=== PATIENT | female | born 1985 | race Caucasian/White ===

== ENCOUNTER 2019-02-24 17:24 | Inpatient (IN) | payer MEDICAID, OTHER ==
[~2019-02-24] VITALS: Ht 157.5 cm; Wt 66.0 kg
[2019-02-24] MEDS ORDERED: PREN-93 PO (17:42)
[2019-02-24 17:43] VITALS: BP 109/70; PULSE 80; RESP 18; Ht 157.5 cm; Wt 66.0 kg
--- NOTE | 2019-02-24 19:06 | TRIAGE ---
OB Triage Datetime Report Generated by CPN: 02/24/2019 19:06 Datetime: 02/24/2019 18:30 Stage of : OB Triage Maternal Assessment Level of Consciousness: Keenly Alert, Responsive Labor Evaluation Frequency: NONE Monitor Mode: External Resting Tone [place]: Relaxed Heart Rate FHR Baseline Rate: 135 Monitor Mode: External US Variability: Moderate 6-25 bpm Accelerations: 15X15 Decelerations: None Category: Category I Pain Assessment Pain Scale: 0 Pain Goal: 3 Vaginal Exam Membrane Status: Intact Vaginal Bleeding: None Datetime: 02/24/2019 17:41 Assessment Type: Triage Maternal Assessment Level of Consciousness: Keenly Alert, Responsive DTR's/Clonus: DTRs 2+; No Clonus Headache: Denies Blurred Vision: No Respiratory Effort: Unlabored; Regular Rhythm; Equal Expansion Breath Sounds, Left: Clear and Equal Breath Sounds, Right: Clear and Equal Nausea/Vomiting: Denies RUQ Epigastric Pain: Denies Lower Extremities Edema: None Degree: None Upper Extremities Edema: None Degree: None Facial Edema: None Fall Risk Assessment History of Falling: (0) No Secondary Diagnosis: (0) No Ambulatory Aid: (0) Bedrest/Nurse Assist IV Therapy: (0) No Gait: (0) Normal/Bedrest/Immobile Mental Status: (0) Oriented to Own Ability Fall Score: 0 Fall Risk Score Definition: No Risk: No action required Datetime: 02/24/2019 17:40 Time of Arrival: 02/24/2019 17:15 EGA: 34.5 Arrived By: Ambulatory Arrived From: Office Chief Complaint: PT. SENT FROM CLINIC FOR EVAL. OF HBP Movement: Present Contractions: Denies/Absent Rupture of Membranes: Denies Vaginal Bleeding: None Vaginal Discharge: Denies Recent Sexual Intercouse: Yes Abdominal Trauma: Not Applicable Patient Complaints: None Time Provider Notified: 02/24/2019 18:55 Provider Notified: ALICE Initial Plan: PIH/BPP/EFW Datetime: 02/24/2019 17:38 Monitor Mode: External Monitor Mode: External US
[2019-02-24] MEDS: LACTATED RINGER'S 1,000 ML IV SCH (20:40)
[2019-02-25] MEDS: AL HYDROX/MG HYDROX/SIMETH 30 ML CUP PO PRN ×2 (00:22→12:04)
[2019-02-25] MEDS: LACTATED RINGER'S 1,000 ML IV SCH ×3 (02:18→17:19)
[2019-02-25] MEDS: ACETAMINOPHEN 325 MG TAB PO PRN ×4 (04:23→21:09)
[2019-02-25] MEDS: PRENATAL VITAMIN PO SCH (09:03)
[2019-02-25] MEDS ORDERED: CEFTRIAXONE 1 GM INJ IM ONE (12:00)
[2019-02-25] MEDS ORDERED: CEFTRIAXONE 1 GM/50 ML (PMX) 50 ML IVPB ONE (14:00)
[2019-02-25] MEDS: AMOXICILLIN/CLAV 500 MG TAB PO SCH ×2 (14:14→21:02)
--- NOTE | 2019-02-25 16:23 | HP ---
Date/Time of Note Date/Time of Note DATE: 02/25/19 TIME: 16:18 OB - History Hx of Present Free Text/Dictation 33-year-old female 2 para 1 at 34+ weeks gestation admitted because of oligohydramnios Last Menstrual Period: Aug 23, 2018 Estimated Due Date: Apr 02, 2019 : 2 Para: 1 Care: Limited Care Ultrasounds: No ultrasounds Obstetrical Complications: Other (Size consistently less than dates, advanced maternal age) Medical Complications: None, Other (Left foot plantar fasciitis) Past Family/Social History * Past Medical, Surgical, Family and Obstetric Histories reviewed from chart. Blood Type: O+ Rubella: immune RPR/VDRL: Negative GBS Status: Unknown HBsAG: Negative OB Admission Exam Vital Signs Vital Signs Vital Signs Date Temp Pulse Resp B/P (MAP) Pulse Ox O2 O2 Flow FiO2 Time Delivery Rate 02/24/19 98.4 80 18 109/70 Room Air 17:43 (83) Physical Exam HEENT: WNL Heart: Rhythm Normal Lungs: Clear, Equal Abdomen: WNL Extremities: Normal Reflexes: Normal Cervical Dilatation: None Effacement: 0% Station: -3 Membranes: Intact Heart Rate: 140's Accelerations: Accelerations Present Decelerations: No Decelerations Varibility: Marked Contractions on Admission: None Last 72 hours Lab Results CBC & BMP 02/24/19 18:00 Liver Function Test 02/24/19 18:00 Alanine Aminotransferase (ALT/SGPT) 19 Albumin 3.0 L Alkaline Phosphatase 147 H Aspartate Amino Transf (AST/SGOT) 16 Direct Bilirubin 0.00 Total Protein 6.2 OB Assessment/Plan Other Assessment: 34+ weeks gestation by ultrasound Oligohydramnios Other plan: Patient was admitted for observation and IV hydration DOMINICK RODRÍGUEZ MD Feb 25, 2019 16:23
--- NOTE | 2019-02-25 17:40 | PN ---
Date/Time of Note Date/Time of Note DATE: 02/25/19 TIME: 17:38 OB Subjective Subjective Subjective Patient is no major complaints Feel the baby moves OB Objective Objective Objective General physical exam is unchanged vital signs are stable heart tones are reactive Decreased URBANO, now 1.4 cm. OB Assessment/Plan Other Assessment: Oligohydramnios at 34+ weeks Specific test for ruptured membrane is pending Other plan: Perinatologist was contacted Recommended delivery if ruptured membrane is confirmed In case URBANO remains low will continue hospitalization until 37 weeks Repeat URBANO following day Steroids will be provided for enhanced lung maturation DOMINICK RODRÍGUEZ MD Feb 25, 2019 17:40
[2019-02-25] MEDS ORDERED: BETAMET NA PHOS/AC(6 MG/ML) 2 ML INJ SYG IM ONE (18:00)
[2019-02-25] MEDS: BETAMET NA PHOS/AC(6 MG/ML) 2 ML INJ SYG IM SCH (18:47)
[2019-02-26] MEDS: LACTATED RINGER'S 1,000 ML IV SCH ×4 (00:48→21:00)
[2019-02-26] MEDS: AL HYDROX/MG HYDROX/SIMETH 30 ML CUP PO PRN ×2 (00:58→12:13)
[2019-02-26] MEDS: PRENATAL VITAMIN PO SCH (09:28)
[2019-02-26] MEDS: AMOXICILLIN/CLAV 500 MG TAB PO SCH ×3 (09:28→20:59)
--- NOTE | 2019-02-26 10:08 | PERINOTE ---
Date/Time of Note Date/Time of Note DATE: 02/26/19 TIME: 10:01 Assessment/Recommendations Other Assessments 33 yo with IUP at 35w0d admitted for oligohydramnios, rupture of membranes unlikely. Recommendations: 1. Continue betamethasone course 2. Continuous FHT monitoring. If patient has additional prolonged deceleration or prolonged periods of minimal/absent variability without accelerations, rec ommend proceeding with delivery. 3. NICU consultation 4. Daily URBANO and detailed ultrasound to evaluate kidneys 5. Obtain labs (T&S, etc) for preparation for emergency delivery should FHT de celeration occur 6. Plan will be for delivery at 36 0/7 -37 6/7 weeks per ACOG committee opinion [id number] on medically indicated late and early term deliveries. However, earlier delivery may be indicated by FHT OB Subjective Free Text/Dictaton 33 yo with IUP at 35w0d admitted for oligohydramnios. Patient presented for ultrasound and was found to have low URBANO. URBANO today is 1.4cm. Patient reports leakage of urine when she coughs but denies loss of amniotic fluid. Rupture of membranes has been ruled out with nitraz. Patient is unclear if kidneys have been assessed on previous ultrasounds. PMH: denies PSH: salivary gland removal Meds: PNV, zantac NKDA SH: denies T/A/D HD# 2 IUP @ 35w0d Complaints/Overnight events Review of FHT shows a prolonged FHT deceleration that has recovered and periods of minimal variability without accelerations. However, the FHT at this time is moderate variability with accelerations and without decelerations. Patient is receiving betamethasone course Current Medications Current Medications Lactated Ringer's 1,000 ml @ 150 mls/hr Q6H40M IV Last administered on 02/26/19at 08:11; Admin Dose 150 MLS/HR; Start 02/24/19 at 20:02 Prenat Multivit/ University Manager/Iron/Folic Ac () 1 tab DAILY PO Last administered on 02/26/19at 09:28; Admin Dose 1 TAB; Start 02/25/19 at 09:00 Al Hydrox/Mg Hydrox/Simethicone (Mag-Al Plus) 30 ml Q6H PRN PO GASTROINTESTINAL UPSET Last administered on 02/26/19at 00:58; Admin Dose 30 ML; Start 02/25/19 at 00:30 Acetaminophen (Tylenol Tab) 650 mg Q4H PRN PO MILD PAIN(1-3)OR ELEVATED TEMP Last administered on 02/25/19at 21:09; Admin Dose 650 MG; Start 02/25/19 at 04:30 Amoxicillin/ Clavulanate Potassium (Augmentin) 500 mg TID PO Last administered on 02/26/19at 09:28; Admin Dose 500 MG; Start 02/25/19 at 13:00 Betamethasone Acet/Betameth SodPhos (Celestone Soluspan) 12 mg Q24H IM Last administered on 02/25/19at 18:47; Admin Dose 12 MG; Start 02/25/19 at 17:00; Stop 02/26/19 at 17:01 OB Admission Exam Physical Exam Vitals: Vital Signs Date Temp Pulse Resp B/P (MAP) Pulse Ox O2 O2 Flow FiO2 Time Delivery Rate 02/24/19 98.4 80 18 109/70 Room Air 17:43 (83) Last 72 hours Lab Results CBC & BMP 02/24/19 18:00 Liver Function Test 02/24/19 18:00 Alanine Aminotransferase (ALT/SGPT) 19 Albumin 3.0 L Alkaline Phosphatase 147 H Aspartate Amino Transf (AST/SGOT) 16 Direct Bilirubin 0.00 Total Protein 6.2 Ultrasound Results URBANO 1.4cm GARY MCLEAN MD Feb 26, 2019 10:08
--- NOTE | 2019-02-26 16:37 | PN ---
Date/Time of Note Date/Time of Note DATE: 02/26/19 TIME: 16:35 OB Subjective Subjective Subjective Patient does not have major medical complaints OB Objective Objective Objective Vital signs are stable in general physical exam is unchanged Currently has a reactive tracing with very mild variable deceleration of heart tones URBANO 2 days 0.8 cm Amniotic fluid index considerably is being decreased on a daily basis Perinatology notes appreciated We will try to evaluate kidney function of the baby via ultrasound per perinatologist recommendation Patient is going to receive the second dose of the steroid today If stays stable will deliver at 36 weeks and 1day to 37 weeks and 6 days OB Assessment/Plan Other Assessment: Oligohydramnios at 34+ weeks Other plan: Continue to observe patient DOMINICK RODRÍGUEZ MD Feb 26, 2019 16:37
[2019-02-26] MEDS ORDERED: BETAMET NA PHOS/AC(6 MG/ML) 2 ML INJ SYG IM ONE (18:00)
[2019-02-26] MEDS: BETAMET NA PHOS/AC(6 MG/ML) 2 ML INJ SYG IM SCH (18:43)
[2019-02-26] MEDS: ACETAMINOPHEN 325 MG TAB PO PRN (18:54)
[2019-02-26] MEDS ORDERED: ZOLPIDEM 5 MG TAB PO PRN (20:00)
[2019-02-26] MEDS: RANITIDINE 150 MG TAB PO SCH (20:59)
[2019-02-27] MEDS: LACTATED RINGER'S 1,000 ML IV SCH ×4 (04:34→21:22)
--- NOTE | 2019-02-27 08:57 | PN ---
Date/Time of Note Date/Time of Note DATE: 02/27/19 TIME: 08:55 OB Subjective Subjective Subjective Has no major complaints OB Objective Objective Objective Vital signs are stable as well as general physical exam Ultrasound for URBANO and kidney evaluation was performed results are pending OB Assessment/Plan Other Assessment: 35 weeks gestation with oligohydramnios Other plan: Will continue with continuous monitoring Obtain ultrasound results We will discuss ultrasound results with the patient DOMINICK RODRÍGUEZ MD Feb 27, 2019 08:57
[2019-02-27] MEDS: PRENATAL VITAMIN PO SCH (09:07)
[2019-02-27] MEDS: AMOXICILLIN/CLAV 500 MG TAB PO SCH ×3 (10:03→22:34)
[2019-02-27] MEDS: AL HYDROX/MG HYDROX/SIMETH 30 ML CUP PO PRN ×2 (10:32→20:08)
[2019-02-27] MEDS: ACETAMINOPHEN 325 MG TAB PO PRN (18:13)
[2019-02-27] MEDS: RANITIDINE 150 MG TAB PO SCH (21:51)
[2019-02-28] MEDS: LACTATED RINGER'S 1,000 ML IV SCH ×2 (01:31→09:51)
[2019-02-28] MEDS: AMOXICILLIN/CLAV 500 MG TAB PO SCH ×3 (09:52→21:17)
[2019-02-28] MEDS: PRENATAL VITAMIN PO SCH (09:52)
--- NOTE | 2019-02-28 17:01 | PN ---
Date/Time of Note Date/Time of Note DATE: 02/28/19 TIME: 17:00 OB Subjective Subjective Subjective Patient does not have major complaints OB Objective Objective Objective Vital signs stable and heart tones are also stable General physical exam is unchanged OB Assessment/Plan Other Assessment: 35 weeks gestation with oligohydramnios Ruptured membranes are ruled out Other plan: Continue to observe We will send patient to perinatology clinic following day for detailed ultrasound by perinatologist DOIMNICK RODRÍGUEZ MD Feb 28, 2019 17:01
[2019-02-28] MEDS: RANITIDINE 150 MG TAB PO SCH (17:57)
[2019-02-28] MEDS: ACETAMINOPHEN 325 MG TAB PO PRN (17:57)
[2019-03-01] MEDS: LACTATED RINGER'S 1,000 ML IV SCH ×5 (00:02→21:57)
[2019-03-01] MEDS: AMOXICILLIN/CLAV 500 MG TAB PO SCH ×3 (09:07→21:09)
[2019-03-01] MEDS: PRENATAL VITAMIN PO SCH (09:07)
[2019-03-01] MEDS: RANITIDINE 150 MG TAB PO SCH ×2 (16:16→21:09)
--- NOTE | 2019-03-01 17:07 | PN ---
Date/Time of Note Date/Time of Note DATE: 03/01/19 TIME: 17:03 OB Subjective Subjective Subjective Patient does not have major complaints claims the baby is moving OB Objective Objective Objective Vital signs are stable as well as general physical exam heart tones remained reactive Patient with low amniotic fluid Ultrasound for kidney evaluation could not be performed by perinatologist because of the distance and inability of this service to discharge patient home Perinatologist was contacted by this service and at this point it was felt that performing a detailed ultrasound does not change the management ST ratio on umbilical cord was ordered OB Assessment/Plan Other Assessment: Oligohydramnios at 35+ weeks Other plan: Continue to hospitalize and monitor baby [id number] Per perinatology recommendations will delivered the baby at 36+ weeks Consider another dose of steroids prior to delivery section was recommended as more of a delivery to the patient because of existence of oligohydramnios and occasional variable deceleration of heart tones We will reconsult patient in regards to more of a delivery again DOMINICK RODRÍGUEZ MD Mar 01, 2019 17:07
[2019-03-01] MEDS: ACETAMINOPHEN 325 MG TAB PO PRN (21:10)
[2019-03-02] MEDS: LACTATED RINGER'S 1,000 ML IV SCH ×3 (02:42→18:57)
[2019-03-02] MEDS: PRENATAL VITAMIN PO SCH (09:39)
[2019-03-02] MEDS: AMOXICILLIN/CLAV 500 MG TAB PO SCH ×3 (09:39→21:32)
--- NOTE | 2019-03-02 18:41 | PN ---
Date/Time of Note Date/Time of Note DATE: 03/02/19 TIME: 18:40 OB Subjective Subjective Subjective Patient does not have major complaint Claims to be baby is moving okay OB Objective Objective Objective Vital signs in general physical exam are stable heart tones are reactive ST ratio apparently is normal OB Assessment/Plan Other Assessment: Oligohydramnios at 35+ weeks by late confirmation of gestational age Other plan: Perinatologist is visited patient today and agrees with the management Will try to deliver at 36+ weeks DOMINICK RODRÍGUEZ MD Mar 02, 2019 18:41
[2019-03-02] MEDS: RANITIDINE 150 MG TAB PO SCH (21:32)
--- NOTE | 2019-03-03 00:30 | CONS ---
DATE OF ADMISSION: 02/24/2019 DATE OF CONSULTATION: 03/02/2019 HISTORY OF PRESENT ILLNESS: The patient had been admitted the prior week secondary to elevated blood pressure. After admission, she had some blood pressure issues but in the moderate range. The reaso n I am writing this note is that her URBANO has been low since admission. Initially, it was 3 lower to 1 and then increased to 2 cm. On the ultrasound today, 2 kidneys are seen, bladder is full and there is evidence of stomach. Baby has IUGR with good umbilical artery Doppler and URBANO is about 2 cm. heart is difficult to see obviously secondary to low fluid, but there is evidence of myocardial hypertrophy. This patient has had no care prior to the, essentially, admission, only 1 ult rasound at [facility] in December, which she reports there were no abnormalities seen. Today, she is 35 w eeks and 4 days. RECOMMENDATIONS: Monitor heart spontaneously. Continue with the IV hydration. I did review t he glucose test and it has not been done. I do recommend for this to be done. Delivery at 37 weeks unless there is evidence of nonreassuring heart tones or chorioamnionitis. ROM Plus has been n egative so has been the speculum exam. So, my belief is that the low fluid could be secondary to chr onic hypertension; however, given the late gestational age of diagnosis and low amniotic fluid which limits the complete evaluation of the anatomy, it is difficult to assess completely what would be the reason. I spoke to the patient and her and umbilical artery Doppler needs to be done weekly until delivery and continuous heart tone monitoring. Dictated By: ALEXANDRA HERNANDES MD ST/DANIELLA Conf#: [id number] DID#: [id number] CC: DOMINICK RODRÍGUEZ MD;*EndCC*
[2019-03-03] MEDS: LACTATED RINGER'S 1,000 ML IV SCH ×4 (02:02→21:40)
[2019-03-03] MEDS: AMOXICILLIN/CLAV 500 MG TAB PO SCH ×2 (09:15→13:15)
[2019-03-03] MEDS: PRENATAL VITAMIN PO SCH (09:15)
--- NOTE | 2019-03-03 11:51 | PN ---
Date/Time of Note Date/Time of Note DATE: 03/03/19 TIME: 11:49 OB Subjective Subjective Subjective Currently does not have major medical complaints Claims baby's movements are normal OB Objective Objective Objective Vital signs are stable in general physical exam is unchanged heart tones are reactive Perinatology consultation Dr. Puentes he was appreciated Recommendations were made to deliver at 37 weeks with continuous monitoring Because of decreased amniotic fluid it was mentioned it would be difficult to assess the anatomy completely OB Assessment/Plan Other Assessment: Oligohydramnios at 35+ weeks Other plan: Will follow perinatologist recommendation possibly delivery at 37 weeks or earli er should patient show signs of compromise ODMINICK RODRÍGUEZ MD Mar 03, 2019 11:51
[2019-03-03] MEDS: CLOTRIMAZOLE 1% 30 GM CR TOP SCH (19:30)
[2019-03-03] MEDS: AL HYDROX/MG HYDROX/SIMETH 30 ML CUP PO PRN (20:04)
[2019-03-03] MEDS ORDERED: CLOTRIMAZOLE 1% 30 GM CR TOP SCH (21:00)
[2019-03-03] MEDS: RANITIDINE 150 MG TAB PO SCH (22:12)
[2019-03-04] MEDS: LACTATED RINGER'S 1,000 ML IV SCH ×2 (03:15→11:00)
[2019-03-04] MEDS: CLOTRIMAZOLE 1% 30 GM CR TOP SCH (06:33)
[2019-03-04] MEDS: PRENATAL VITAMIN PO SCH (09:00)
[2019-03-04] MEDS ORDERED: LACTATED RINGER'S 1,000 ML IV SCH ×2 (09:32→19:00)
[2019-03-04] MEDS ORDERED: CARBOPROST 250 MCG INJ IM PRN ×2 (10:00→19:00)
[2019-03-04] MEDS ORDERED: OXYTOCIN 30 UNITS/LR 500 ML IV PRN ×2 (10:00→19:00)
[2019-03-04] MEDS ORDERED: MISOPROSTOL 200 MCG TAB PR PRN ×2 (10:00→19:00)
[2019-03-04] MEDS ORDERED: METHYLERGONOVINE 0.2 MG INJ IM PRN ×2 (10:00→19:00)
[2019-03-04] MEDS ORDERED: CEFAZOLIN 2 GM/50 ML (PMX) 50 ML IVPB SCH (10:00)
--- NOTE | 2019-03-04 13:38 | PREAC ---
Date/Time of Note Date/Time of Note DATE: 03/04/19 TIME: 13:36 Anesthesia Eval and Record Evaluation Time Pre-Procedure Interview DATE: 03/04/19 TIME: 13:36 Age 33 Sex female NPO: 8 hrs Preoperative diagnosis IUGR, low URBANO Planned procedure C/S Past Medical History Past Medical History: None Surgery & Anesthesia Issues No known issue Meds Anticoagulation: No Beta Gabi within 24 hr: No Reason Beta Gabi not given: Pt. not on B-Gabi Reported Medications Vit No.124/Iron/FA ( Vitamin Tablet) 1 Each Tablet, 1 EACH PO DAILY, TAB 02/24/19 Current Medications Prenat Multivit/ Sled Maker/Iron/Folic Ac () 1 tab DAILY PO Last administered on 03/03/19 09:15; Admin Dose 1 TAB; Start 02/25/19 at 09:00 Al Hydrox/Mg Hydrox/Simethicone (Mag-Al Plus) 30 ml Q6H PRN PO GASTROINTESTINAL UPSET Last administered on 03/03/19at 20:04; Admin Dose 30 ML; Start 02/25/19 at 00:30 Acetaminophen (Tylenol Tab) 650 mg Q4H PRN PO MILD PAIN(1-3)OR ELEVATED TEMP Last administered on 03/01/19 21:10; Admin Dose 650 MG; Start 02/25/19 at 04:30 Ranitidine HCl (Zantac) 150 mg HS PO Last administered on 03/03/19at 22:12; Admin Dose 150 MG; Start 02/26/19 at 21:00 Zolpidem Tartrate (Ambien) 5 mg HS PRN PO INSOMNIA Last administered on 02/26/19 22:28; Admin Dose 5 MG; Start 02/26/19 at 20:00 Lactated Ringer's 1,000 ml @ 150 mls/hr Q6H40M IV Last administered on 03/04/19 03:15; Admin Dose 150 MLS/HR; Start 03/02/19 at 19:00 Clotrimazole (Lotrimin Cr) 1 applic Q12H TOP Last administered on 03/04/19 06:33; Admin Dose 1 APPLIC; Start 03/03/19 at 18:30 Lactated Ringer's 1,000 ml @ 125 mls/hr Q8H IV ; Start 03/04/19 at 09:32 Cefazolin Sodium/ Dextrose 50 ml @ 100 mls/hr ONCE IVPB ; Start 03/04/19 at 10:00 Oxytocin/Lactated Ringer's 500 ml @ 0 mls/hr ONCE PRN IV .VAGINAL BLEEDING; Start 03/04/19 at 10:00 Methylergonovine Maleate (Methergine) 0.2 mg ONCE PRN IM .VAGINAL BLEEDING; Start 03/04/19 at 10:00 Carboprost Tromethamine (Hemabate) 250 mcg ONCE PRN IM .VAGINAL BLEEDING; Start 03/04/19 at 10:00 Misoprostol (Cytotec) 1,000 mcg ONCE PRN [place] .VAGINAL BLEEDING; Start 03/04/19 at 10:00 Meds reviewed: Yes Allergies Coded Allergies: No Known Allergy (Unverified , 02/24/19) Allergies Reviewed: Yes Labs/Studies Labs Reviewed: Reviewed by anesthesiologist Result Diagram: 03/04/19 0950 03/04/19 0950 Laboratory Tests 03/04/19 09:50 Blood Bank Test 03/04/19 09:50 Antibody Screen NEGATIVE Blood Type O POSITIVE test: Positive Pre-procedure Exam Airway: Adequate mouth opening Mallampati: Mallampati II Teeth: Normal Lung: Normal Heart: Normal ASA Physical Status ASA physical status: 2 Emergency: None Planned Anesthetic Neuraxial: Spinal Planned Pain Management Sub-arachniod narcotics Pre-operative Attestations Prior to commencing anesthesia and surgery, the patient was re-evaluated, there was verification of: *The patient's identity *The results of appropriate recent lab work and preoperative vital signs *The above evaluation not changing prior to induction *Anesthetic plan, risk benefits, alternative and complications discussed with patient/family; questions answered; patient/family understands, accepts and wishes to proceed. ELISA LOWE MD Mar 04, 2019 13:38
[2019-03-04] MEDS ORDERED: OXYTOCIN 30 UNITS/LR 500 ML IV ONE (13:50)
[2019-03-04] MEDS ORDERED: ONDANSETRON 4 MG INJ ONE (13:50)
[2019-03-04] MEDS ORDERED: morphine SULFATE/PF (10 MG/10 ML) INJ ONE (13:50)
[2019-03-04] MEDS ORDERED: OXYTOCIN 10 UNIT INJ ONE ×3 (13:51→14:38)
[2019-03-04] MEDS ORDERED: METOCLOPRAMIDE 10 MG INJ ONE (13:51)
[2019-03-04] MEDS ORDERED: EPHEDrine 25 MG/5 ML SYG ONE (14:38)
[2019-03-04] MEDS ORDERED: MIDAZOLAM 1 MG/ML 2 ML INJ ONE (14:50)
[2019-03-04] MEDS ORDERED: EPHEDrine 25 MG/5 ML SYG IV PRN (15:30)
[2019-03-04] MEDS ORDERED: ONDANSETRON 4 MG INJ IV PRN ×2 (15:30→19:00)
[2019-03-04] MEDS ORDERED: morphine 2 MG INJ IV PRN (15:30)
[2019-03-04] MEDS ORDERED: NALOXONE (0.4 MG/ML) INJ IV PRN (15:30)
[2019-03-04] MEDS ORDERED: DIPHENHYDRAMINE 50 MG INJ IV PRN ×2 (15:30→19:00)
[2019-03-04] MEDS ORDERED: morphine SULFATE/PF (10 MG/10 ML) INJ SPINAL ONE (15:30)
[2019-03-04] MEDS: KETOROLAC 30 MG INJ IV PRN (17:26)
[2019-03-04 18:10] VITALS: BP 114/70; PULSE 60; RESP 18
--- NOTE | 2019-03-04 18:38 | OPPN ---
Date/Time of Note Date/Time of Note DATE: 03/04/19 TIME: 18:31 Operative Report Planned Procedure Procedure date Mar 04, 2019 Procedure(s) primary LTCS Performed by see signature line Full Roll Inspector: PREM ROQUE MD 2nd Full Roll Inspector none Anesthesiologist: ELISA LOWE MD Pre-procedure diagnosis IUP 35w4d severe oligohydramnios CAT II [id number] Anesthesia Type: [id number] spinal Post-Procedure Post-procedure diagnosis delivered normal male Findings Live Baby [f], Apgars [8] and [9], weight [], position [rot], [vx] presentation [no]cord. Estimated Blood Loss: 400 - 500 mls Specimen(s) placenta Grafts/Implant(s) none Complication(s) none CARMELINA CHAMBERLAIN MD Mar 04, 2019 18:38
[2019-03-04] MEDS ORDERED: OXYCODONE/ACETAMINOPHEN (5/325) TAB PO PRN (19:00)
[2019-03-04] MEDS ORDERED: ZOLPIDEM 5 MG TAB PO PRN (19:00)
[2019-03-04 19:45] VITALS: BP 136/72; PULSE 62; RESP 18
[2019-03-04] MEDS: SENNA/DOCUSATE NA (8.6MG/50MG) TAB PO SCH (21:00)
[2019-03-04] MEDS: morphine 2 MG INJ IV PRN (21:54)
--- NOTE | 2019-03-04 23:03 | PAC ---
Date/Time of Note Date/Time of Note DATE: 03/04/19 TIME: 23:03 Post-Anesthesia Notes Post-Anesthesia Note Last documented vital signs Vital Signs Date Temp Pulse Resp B/P (MAP) Pulse Ox O2 O2 Flow FiO2 Time Delivery Rate 03/04/19 98.1 62 18 136/72 95 Room Air 19:45 (93) Activity: WNL Respiratory function: WNL Cardiovascular function: WNL Mental status: Baseline Pain reasonably controlled: Yes Hydration appropriate: Yes Nausea/Vomiting absent: Yes ELISA LOWE MD Mar 04, 2019 23:03
[2019-03-05] MEDS: KETOROLAC 30 MG INJ IV PRN ×2 (03:20→09:54)
[2019-03-05 03:50] VITALS: BP 127/76; PULSE 84; RESP 18
[2019-03-05] MEDS: LACTATED RINGER'S 1,000 ML IV SCH ×2 (05:07→13:00)
[2019-03-05 08:30] VITALS: BP 118/77; PULSE 86; RESP 18
[2019-03-05] MEDS: morphine 2 MG INJ IV PRN (08:34)
[2019-03-05] MEDS: SENNA/DOCUSATE NA (8.6MG/50MG) TAB PO SCH ×2 (08:34→21:37)
[2019-03-05] MEDS: CLOTRIMAZOLE 1% 30 GM CR TOP SCH ×2 (11:12→21:36)
--- NOTE | 2019-03-05 11:26 | OPPN ---
Date/Time of Note Date/Time of Note DATE: 03/05/19 TIME: 11:25 Anesthesia Follow up Anesthesia Follow up Last documented vital signs Vital Signs Date Temp Pulse Resp B/P (MAP) Pulse Ox O2 O2 Flow FiO2 Time Delivery Rate 03/05/19 98.0 86 18 118/77 97 Room Air 08:30 (91) Respiratory function: WNL Cardiovascular function: WNL Comments Postoperative pain in good control with spinal duramorph. Vital signs stable. No other specific complaints. ELISA LOWE MD Mar 05, 2019 11:26
--- NOTE | 2019-03-05 13:15 | QN ---
Documentation Comment late entry for service rendered on 03/04/19 preoperative note: 33y.o at 35w4d has been hospitalized for one week due to severe oligohydramnios which started 3cm than1.2 ,2 earlier 03/04/19 called for profound variable down to 60's for 4min discussed with MFM( Dr Ramos ) suggested to deliver,mode /c/s because of situation of oligohydramnios and poss IUGR and possible undetected anomalies informed patient ,agree to undergo primary c/s CARMELINA CHAMBERLAIN MD Mar 05, 2019 13:15
--- NOTE | 2019-03-05 13:20 | PN ---
Date/Time of Note Date/Time of Note DATE: 03/05/19 TIME: 13:16 OB Subjective Subjective Subjective no passing flatus yet tolerating liquid well OB Objective Objective Objective VSS afebrile still have bloom in ,draining well abdomen soft wound dry lochia min calf neg for tenderness OB Assessment/Plan Other Assessment: A S/P primary C/S #1 stable Other plan: advance diet ambulate CARMELINA CHAMBERLAIN MD Mar 05, 2019 13:20
[2019-03-05 16:37] VITALS: BP 140/91; PULSE 105; RESP 18
[2019-03-05] MEDS: OXYCODONE/ACETAMINOPHEN (5/325) TAB PO PRN (17:38)
[2019-03-05] MEDS: IBUPROFEN 600 MG TAB PO SCH (18:21)
[2019-03-05 20:10] VITALS: BP 124/77; PULSE 97; RESP 18
[2019-03-06] MEDS: IBUPROFEN 600 MG TAB PO SCH ×5 (00:11→23:36)
[2019-03-06] MEDS: OXYCODONE/ACETAMINOPHEN (5/325) TAB PO PRN ×5 (00:57→18:50)
[2019-03-06 04:03] VITALS: BP 126/53; PULSE 80; RESP 17
[2019-03-06] MEDS: LANOLIN HPA 1 PKT TOP PRN (05:09)
[2019-03-06 08:00] VITALS: BP 117/83; PULSE 70; RESP 16
[2019-03-06] MEDS: SENNA/DOCUSATE NA (8.6MG/50MG) TAB PO SCH ×2 (09:05→21:22)
[2019-03-06] MEDS: CLOTRIMAZOLE 1% 30 GM CR TOP SCH ×2 (10:18→21:22)
[2019-03-06 15:50] VITALS: BP 123/83; PULSE 94; RESP 18
--- NOTE | 2019-03-06 18:17 | PN ---
Date/Time of Note Date/Time of Note DATE: 03/06/19 TIME: 18:13 OB Subjective Subjective Subjective no b.m yet tolerating diet well no c/o except incisional pain OB Objective Objective Objective vss afebrile abdomen soft wound dry calf neg for tenderness lochia min postop CBC 10.5/9.5,29/322 OB Assessment/Plan Other Assessment: stable post primary c/s#2 Plan: Expectant Management CARMELINA CHAMBERLAIN MD Mar 06, 2019 18:17
--- NOTE | 2019-03-06 18:42 | OPR ---
DATE OF OPERATION: PREOPERATIVE DIAGNOSES: 1. 35 weeks 4 days. 2. Severe oligohydramnios. 3. Category 2 tracing. PROCEDURE: Primary low transverse section. ANESTHESIA: Spinal. ANESTHESIOLOGIST: Dr. Ty Yang SURGEON: Nicole Hobbs GM/SVP [employer] BUSINESS: ____ ESTIMATED BLOOD LOSS: Approximately 500 mL. POSTOPERATIVE DIAGNOSIS: Delivered normal male infant. Baby weighed 4 pounds 8 ounces, Apga r 8 and 9. PROCEDURE: Under proper induction of spinal anesthesia, the patient was placed in frog position. Fo earl catheter was introduced into the bladder under sterile condition, repositioned to supine. Abdomi nal wall was prepped and draped in usual aseptic manner. A Pfannenstiel incision was made. Incision was carried down through the subcutaneous tissue to the anterior recti fascia which was incised cunningham sversely, length of the incision. Fascial flap was created by blunt and sharp dissection of tendinou s attachment upward, and 2 rectus muscles split in the midline, and peritoneal cavity was entered. L ow portion of the uterus was exposed. A transverse incision was made above the uterovesical reflecti on. Incision was layer by layer, reached the amniotic fluid. There was no significant amount of flu id noted. The normal male was born from right occiput transverse position. Baby weig hed 4 pounds 8 ounces, with 8 and 9. Delayed clamp done and cut and handed to the respiratory care personnel for further care. Cord blood was obtained. A section of cord was obtained, but was d iscarded because of the was good. Placenta was sent for evaluation for severe oligohydramnios with possible IUGR. Uterus was exteriorized. Cavity was completely explored. Uterine incision was closed using #1 chromic catgut in continuous interlocking manner on the first layer and second layer using 0 chromic catgut including serosa. No bleeding was noted. Uterus was relocated in abdominal c avity after all the blood irrigated in the abdominal cavity, and sponge count correct. Then, the inc isional site rechecked, which was intact. Parietal peritoneum was closed using 0 chromic catgut in c ontinuous manner, muscle closed with 0 chromic catgut in continuous manner. The fascia closed with a #1 Vicryl in 2 segments. The subcutaneous tissue irrigated with water. This layer was approximated with 2-0 plain gut after adequate hemostasis secured. Skin closed with 3-0 Monocryl in subcuticular manner. Steri-Strip applied. Pressure dressing applied. Estimated blood loss approximately 500 mL . The patient sent to the recovery room in stable condition. Urine output approximately 200 mL, whi ch was clear. Dictated By: DOV JUAREZ/DANIELLA Conf#: [id number] DID#: [id number]
[2019-03-06 19:30] VITALS: BP 128/80; PULSE 90; RESP 19
[2019-03-06] MEDS ORDERED: BISACODYL 10 MG SUPP PR ONE (21:30)
[2019-03-06] MEDS: RANITIDINE 150 MG TAB PO SCH (22:27)
[2019-03-07] MEDS: OXYCODONE/ACETAMINOPHEN (5/325) TAB PO PRN ×5 (00:45→23:17)
[2019-03-07 03:40] VITALS: BP 124/73; PULSE 71; RESP 18
[2019-03-07] MEDS: IBUPROFEN 600 MG TAB PO SCH ×3 (05:41→18:00)
[2019-03-07 08:20] VITALS: BP 114/72; PULSE 85; RESP 16
[2019-03-07] MEDS ORDERED: DIPHTH/TET/ACEL PERTUSS (ADULT) 0.5 ML VIAL IM* ONE (09:00)
[2019-03-07] MEDS: SENNA/DOCUSATE NA (8.6MG/50MG) TAB PO SCH ×2 (09:12→21:59)
[2019-03-07] MEDS: CLOTRIMAZOLE 1% 30 GM CR TOP SCH ×2 (09:13→21:59)
--- NOTE | 2019-03-07 15:20 | DS ---
Date/Time of Note Date/Time of Note DATE: 03/07/19 TIME: 15:19 Obstetrical Discharge Record Final Diagnosis Final Diagnosis: delivered Other Final Diagnosis Status post section at 35 weeks and 6 days Section Section: Primary Primary Indication Prolonged bradycardic episodes Complications Other (Oligohydramnios) Augmentation: No Induction: No Condition on Discharge Physical Assessment Last Vitals: See nurse's notes Voiding: Yes Bowel Movement: Yes Breast: Soft, non-tender, Filling Fundus: Firm Abdomen and Incision: Abdomen is soft with firm fundus His incision is healing well without induration and or erythema Calf Tenderness: No Patient Condition: Good DOMINICK RODRÍGUEZ MD Mar 07, 2019 15:20
--- NOTE | 2019-03-07 15:23 | DS ---
Date/Time of Note Date/Time of Note DATE: 03/07/19 TIME: 15:21 Discharge Summary Admission/Discharge Info Admit Date/Time Feb 24, 2019 at 18:50 Discharge Date/Time March 07, 2019 Discharge Diagnosis Status post delivery Patient Condition: Good Consults Perinatologist Procedures Primary section Hx of Present Illness 33-year-old female admitted with oligohydramnios at 34+ weeks After period of observation oligohydramnios became more pronounced and baby started having prolonged heart decelerations Finally she underwent primary section by on-call physician Hospital Course Patient had uncomplicated hospitalization course Home Meds Reported Medications Vit No.124/Iron/FA ( Vitamin Tablet) 1 Each Tablet, 1 EACH PO DAILY, TAB 02/24/19 Follow-up Plan To 3 days in clinic for staple removal Primary Care Provider Dominick Abernathy MD Time spent on discharge: > 30 minutes DOMINICK ABERNATHY MD Mar 07, 2019 15:23
[2019-03-07] MEDS ORDERED: IBUP-1542 PO (15:27)
[2019-03-07] MEDS ORDERED: ACET325T33 PO (15:28)
[2019-03-07] MEDS ORDERED: ACETAMINOPHEN 325 MG TAB PO PRN (15:30)
[2019-03-07 16:00] VITALS: BP 135/89; PULSE 76; RESP 18
--- NOTE | 2019-03-07 16:08 | PD.PPDC ---
SCHOOL BUS DRIVER/CUSTODIAN Discharge Instruction Provider Information Physician Information 33-year-old female had primary section for prolonged bradycardic episodes Diagnosis [id number] Final Diagnosis: Eaebm9k Status post Condition Mgffb1Go Patient Condition: Hzirw9d Good Diet [id number] Diet: Lakzh1n Resume Regular Diet Activity/Restrictions Hhaph6Fl Activity: Pmera7l May Shower Vzang3Gs Restrictions: Svaqh8a No Exercising No Lifting Nothing in the Vagina Unjny6Vg Return to Work or School: Jwewo3d May 09, 2019 Wound/Drain Care Instructions [id number] Wound/Drain Care Instructions: Nzfrp0r Keep clean and dry Follow-up Follow-up with Physician: 2, Week/Weeks (In clinic for follow-up) Return to clinic for Kutgu4Qb OB Instructions: Fblnj6n Breast Tenderness Depression Comment: Pelvic rest no hard activity for 2 months Fpsib7Bq Surgical Instructions: Yiefd7n Incisional Drainage Incisional Redness DOMINICK RODRÍGUEZ MD Mar 07, 2019 16:08
[2019-03-07] MEDS: LANOLIN HPA 1 PKT TOP PRN (18:19)
[2019-03-07 19:40] VITALS: BP 124/74; PULSE 78; RESP 19
[2019-03-07] MEDS: RANITIDINE 150 MG TAB PO SCH (21:59)
[2019-03-08] MEDS: IBUPROFEN 600 MG TAB PO SCH ×3 (00:07→12:00)
[2019-03-08 03:40] VITALS: BP 129/75; PULSE 75; RESP 18
[2019-03-08] MEDS: OXYCODONE/ACETAMINOPHEN (5/325) TAB PO PRN ×3 (04:33→15:09)
[2019-03-08 08:30] VITALS: BP 129/74; PULSE 73; RESP 17
[2019-03-08] MEDS: CLOTRIMAZOLE 1% 30 GM CR TOP SCH (10:35)
[2019-03-08] MEDS: SENNA/DOCUSATE NA (8.6MG/50MG) TAB PO SCH (10:35)
[2019-03-08] MEDS: LANOLIN HPA 1 PKT TOP PRN (10:36)
[2019-03-08] MEDS ORDERED: DIPHTH/TET/ACEL PERTUSS (ADULT) 0.5 ML VIAL IM* ONE (14:30)
--- NOTE | 2019-03-09 16:29 | DELSUM ---
Delivery Summary A-C Datetime Report Generated by CPN: 03/09/2019 16:29 MATERNAL INFORMATION Delivery Anesthesia: Spinal Placenta Cultured: No Maternal Complications: None LABOR SUMMARY EDC: 04/02/2019 00:00 No. Babies in Womb: 1 Attempted: No Labor Anesthesia: Intrathecal LABOR INFORMATION Reason for Induction: Not Applicable Group B Beta Strep: Not Done Antibiotics # of Doses: 1 Antibiotics Time of Last Dose: 03/04/2019 13:50 Steroids Given: Full Course Reason Steroids Not Administered: Not Applicable MEMBRANES Membranes Rupture Method: Artificial Rupture of Membranes: 03/04/2019 14:35 Length of Rupture (hr): 0.02 Amniotic Fluid Color: Clear Amniotic Fluid Amount: Small Amniotic Fluid Odor: None STAGES OF LABOR Stage 3 hr: 0 Stage 3 min: 1 CSECTION DELIVERY Primary Indication: Other Other Primary Indication: Oligohydramnios Secondary Indication: Other Other Secondary Indication: Category II FHR CSection Urgency: Non Elective CSection Incidence: Primary Labor: No Labor Elective: N/A CSection Incision: Lower Uterine Transverse BABY A INFORMATION Infant Delivery Date/Time: 03/04/2019 14:36 Method of Delivery: Born in Route : No : N/A Forceps: N/A Vacuum Extraction: N/A Shoulder Dystocia : N/A SHOULDER DYSTOCIA BABY A Delivery Date/Time: 03/04/2019 14:36 PRESENTATION/POSITION BABY A Presentation: Cephalic Cephalic Presentation: Vertex Vertex Position: Left Occipital Posterior Breech Presentation: N/A PLACENTA INFORMATION BABY A Placenta Delivery Time : 03/04/2019 14:37 Placenta Method of Delivery: Manual Removal Placenta Status: Delivered SCORES BABY A Heart Rate 1 min: >100 bpm Resp Effort 1 min: Good Cry Reflex Irritability 1 min: Cough/Sneeze/Pulls Away Muscle Tone 1 min: Active Motion Color 1 min: Blue/Pale Resuscitation Effort 1 min: Tactile Stimulation SCORE 1 MIN: 8 Heart Rate 5 min: >100 bpm Resp Effort 5 min: Good Cry Reflex Irritability 5 min: Cough/Sneeze/Pulls Away Muscle Tone 5 min: Active Motion Color 5 min: Body [place], Extremit Blue Resuscitation Effort 5 min: Tactile Stimulation SCORE 5 MIN: 9 INFORMATION BABY A Gestational Age at Delivery: 35.6 Gestational Status: Late - 34- 36.6 Weeks Infant Outcome : Liveborn, with signs of life Condition : Stable Infant Sex: Male IDENTIFICATION/MEDS BABY A ID Band Number: [id number] ID Band Location: Right Leg; Left Arm Sensor Applied: Yes Sensor Number: [id number] Sensor Location : Cord Clamp Vitamin K Given : Aquamephyton 0.5 mg IM; Left Thigh Erythromycin Given: Given Both Eyes WEIGHT/LENGTH BABY A Birthweight (gm): 2040 Infant Weight (lb): 4 Infant Weight (oz): 8 Length (in): 17.50 Length (cm): 44.45 CORD INFORMATION BABY A No. Cord Vessels: 3 Nuchal Cord : N/A Cord Blood Taken: No Infant Suction: Mouth; Nose ASSESSMENT BABY A Infant Complications: None Physical Findings at Delivery: Within Normal Limits Infant Respirations: Appears Normal Environmental Compliance Officer/ALS Called : Yes Infant Care By: Simin [place] Transferred To: Remains with Mother
== END 2019-03-08 16:10 | disposition home or self-care (01) | DRG 787 ==
LOC: L-D 17:24 → OBT 17:24 → L-D 18:50 → OBT 18:50 → L-D 23:01 → PP1 02-27 21:04 → L-D 03-04 09:54 → PP1 03-04 18:04
PROVIDERS: ADMIT Obstetrics & Gynecology; ATTEND Obstetrics & Gynecology
PROC: 10D00Z1 Extraction of Products of Conception, Low, Open Approach (ICD-10-PCS; principal; 2019-03-04)
PROC: 3E033VJ Introduction of Other Hormone into Peripheral Vein, Percutaneous Approach (ICD-10-PCS; 2019-03-04)
DX: O60.13X0 Preterm labor second trimester with preterm delivery third trimester, not applicable or unspecified (principal); O41.03X0 Oligohydramnios, third trimester, not applicable or unspecified; O76 Abnormality in fetal heart rate and rhythm complicating labor and delivery; Z3A.35 35 weeks gestation of pregnancy; Z37.0 Single live birth
CPT/HCPCS: 62322; 76811; 76815; 76816; 76818; 76820; 80053; 81001; 84112; 84560; 85025; 85610; 85730; 86592; 86850; 86900; 86901; 87081; 87086; 87340; 88307; 90715; G0463; J0696; J0702; J1885; J2250; J2270; J2274; J2405; J2590; J2765; J7120